=== PATIENT | male | born 1960 | race Two or more races ===

== ENCOUNTER 2016-11-09 03:51 | Emergency (ER) | payer OTHER ==
[2016-11-09 04:06] VITALS: BP 123/95; PULSE 95; RESP 18; TEMP 97.9; O2SAT 97
[2016-11-09] MEDS ORDERED: DEXAMETHASONE 10 MG/ML VIAL IVP ONE (04:41)
[2016-11-09] MEDS ORDERED: diphenhydrAMINE 25 MG CAP PO ONE (04:41)
--- NOTE | 2016-11-09 04:43 | EDPHY ---
H & P Stated Complaint: RASH TO ABD AND BACK, POSS ALERGIC REACTIOMN Time Seen by Provider: 11/09/16 04:26 HPI/ROS: HPI The patient presents with rash on his chest and back which has been present for the last 3 hours. It is very itchy and not painful. The patient feels like it is actually improving. He has a history of similar many years ago for which he took an antihistamine. He is currently visiting from [place] and is staying at a hotel and is not sure if he is having a reaction to any of the products use there. He does not have any shortness of breath, vomiting, difficulty swallowing. He does not have any vomiting or dizziness. REVIEW OF SYSTEMS Constitutional: No fever, no chills. Eyes: No discharge. ENT: No sore throat. Cardiovascular: No chest pain, no palpitations. Respiratory: No cough, no shortness of breath. Gastrointestinal: No abdominal pain, no vomiting. Genitourinary: No hematuria. Musculoskeletal: No back pain. Skin: Rash present Neurological: No headache. PMHx: Healthy Soc Hx: Visiting from [place] PHYSICAL General Appearance: Alert, no distress Eyes: Pupils equal and round no pallor or injection ENT, Mouth: Mucous membranes moist, posterior pharynx is normal Respiratory: There are no retractions, lungs are clear to auscultation Cardiovascular: Regular rate and rhythm Gastrointestinal: Abdomen is soft and non-tender, no masses, bowel sounds normal Neurological: A&O, moves all extremities Skin: Warm and dry, diffuse erythematous rash of abdomen Musculoskeletal: Neck is supple non tender Extremities: symmetrical, full range of motion Psychiatric: Patient is oriented X 3, there is no agitation Source: Patient - Personal History Current Tetanus/Diphtheria Vaccine: Unsure Current Tetanus Diphtheria and Acellular Pertussis (TDAP): Unsure - Medical/Surgical History Hx Asthma: No Hx Chronic Respiratory Disease: No Hx Diabetes: No Hx Cardiac Disease: No Hx Renal Disease: No Hx Cirrhosis: No Hx Alcoholism: No Hx HIV/AIDS: No Hx Splenectomy or Spleen Trauma: No Other PMH: ADINOID SURGERY - Social History Smoking Status: Never smoked Constitutional: Initial Vital Signs Temperature (C) 36.6 C 11/09/16 04:03 Heart Rate 95 11/09/16 04:03 Respiratory Rate 18 11/09/16 04:03 Blood Pressure 123/95 H 11/09/16 04:03 O2 Sat (%) 97 11/09/16 04:03 O2 Delivery Mode Room Air Allergies/Adverse Reactions: penicillin G Allergy (Verified 11/09/16 04:06) Home Medications: Medication Instructions Recorded NK [No Known Home Meds] 11/09/16 Medical Decision Making Differential Diagnosis: This is a 56-year-old man who presents with itchy rash for the last 3 hours. Differential diagnosis includes urticaria, contact dermatitis, less likely cellulitis. The patient was given a dose of steroids and Benadryl for his symptoms. He had no progression of his symptoms while he was here. He will be discharged. He was advised to take Benadryl as needed. I feel he likely has urticaria. - Data Points Medications Given: Discontinued Medications Dexamethasone (Decadron Injection) 10 mg IVP EDNOW ONE Stop: 11/09/16 04:42 Last Admin: 11/09/16 04:47 Dose: Not Given Dexamethasone (Decadron) 10 mg PO EDNOW ONE Stop: 11/09/16 04:47 Last Admin: 11/09/16 04:47 Dose: 10 mg Diphenhydramine HCl (Benadryl) 25 mg PO EDNOW ONE Stop: 11/09/16 04:42 Last Admin: 11/09/16 04:45 Dose: 25 mg Departure - Departure Disposition: Home, Routine, Self-Care Clinical Impression: Urticaria Condition: Good Instructions: Urticaria (ED) Additional Instructions: Please return to the emergency room if your worse in any way. Referrals: NONE *PRIMARY CARE P,. [Primary Care Provider] - As per Instructions
[2016-11-09] MEDS ORDERED: DEXAMETHASONE 4 MG TAB PO ONE (04:46)
== END 2016-11-09 04:52 | disposition home or self-care (01) ==
DX: L50.9 Urticaria, unspecified (principal)